=== PATIENT | male | born 1945 | race Caucasian/White ===

== ENCOUNTER 2017-10-05 07:45 | Emergency (ER) | payer MEDICARE, OTHER ==
[2017-10-05 07:57] VITALS: O2SAT 98
--- NOTE | 2017-10-05 08:12 | ERPHSYRPT ---
- History of Present Illness Time Seen by Provider: 10/05/17 08:01 Source: patient Exam Limitations: no limitations Patient Subjective Stated Complaint: pt here for right sided head pain started a few weeks ago and now has jaw pain as well, sharp shooting pain that comes and goes, no injury. Triage Nursing Assessment: pt alert, waked in , resp easy, skin w/d/p. no injury noted to right side of face Physician History: 71-year-old white male arrives with complaint of right sided head pain for 2 weeks described as sharp he states beginning last night he began to have pain around the right angle of the jaw again described as sharp. No history of chest pain no shortness of breath no nausea no vomiting. Describes the pain is intermittent. Past medical history includes high blood pressure. Past surgical history includes orthopedic surgery (right knee scope Social history patient denies tobacco alcohol or illicit drug use Patient states he was seen by his family doctor for his head pain but no real reason for the pain Timing/Duration: other (right-sided head pain for 2 weeks right jaw pain since yesterday) Severity: moderate Modifying Factors: Improves With: nothing Associated Symptoms: headaches (right sided head pain sharp), No nausea, No vomiting, No abdominal pain, No shortness of breath, No heartburn, No diaphoresis, No cough, No chills, No chest pain, No fever, No loss of appetite, No malaise, No rash, No syncope, No seizure, No weakness Allergies/Adverse Reactions: No Known Drug Allergies Allergy (Verified 10/05/17 07:57) Home Medications: Aspirin 81 gm Chew [Baby Aspirin 81 mg Chew] 81 mg PO DAILY 11/01/13 [ History] Lisinopril 40 mg PO DAILY 11/02/13 [History] hydroCHLOROthiazide [Hydrochlorothiazide] 12.5 mg DAILY 10/05/17 [History] Hx Influenza Vaccination/Date Given: Yes Hx Pneumococcal Vaccination/Date Given: Yes Immunizations Up to Date: Yes - Review of Systems Constitutional: No Fever, No Chills Eyes: No Symptoms Ears, Nose, & Throat: Mouth Pain, Other (right jaw painright jaw pain), No Ear Pain, No Ear Discharge, No Hearing Changes, No Tinnitus, No Nose Pain, No Nose Congestion, No Nose Discharge, No Sinus Drainage, No Epistaxis, No Mouth Swelling, No Loose Teeth, No Throat Pain, No Throat Swelling, No Snoring, No Stridor Respiratory: No Cough, No Dyspnea Cardiac: No Chest Pain, No Edema, No Syncope Abdominal/Gastrointestinal: No Abdominal Pain, No Nausea, No Vomiting, No Diarrhea Genitourinary Symptoms: No Dysuria Musculoskeletal: No Back Pain, No Neck Pain Skin: No Rash Neurological: Other (right sided head pain), No Dizziness, No Focal Weakness, No Gait Changes, No Irritability, No Lethargy, No Paralysis, No Parasthesia, No Seizure, No Sensory Changes, No Speech Changes, No Tics, No Tremors, No Vertigo Psychological: No Symptoms Endocrine: No Symptoms All Other Systems: Reviewed and Negative - Past Medical History Pertinent Past Medical History: No Neurological History: No Pertinent History ENT History: Cataracts Cardiac History: Hypertension Respiratory History: No Pertinent History Endocrine Medical History: No Pertinent History Musculoskeletal History: No Pertinent History GI Medical History: No Pertinent History History: No Pertinent History Psycho-Social History: No Pertinent History Male Reproductive Disorders: No Pertinent History - Past Surgical History Past Surgical History: Yes Neuro Surgical History: No Pertinent History Cardiac: No Pertinent History Respiratory: No Pertinent History Gastrointestinal: No Pertinent History Genitourinary: No Pertinent History Musculoskeletal: Orthopedic Surgery Male Surgical History: No Pertinent History Other Surgical History: right knee scope - Social History Smoking Status: Never smoker Exposure to second hand smoke: Yes Drug Use: none Patient Lives Alone: No - Nursing Vital Signs Nursing Vital Signs: Initial Vital Signs Temperature 97.8 F 10/05/17 07:49 Pulse Rate 58 L 10/05/17 07:49 Respiratory Rate 16 10/05/17 07:49 Blood Pressure 154/88 10/05/17 07:49 O2 Sat by Pulse Oximetry 98 10/05/17 07:49 Pain Scale Pain Intensity 6 - Physical Exam General Appearance: no apparent distress, alert Eye Exam: PERRL/EOMI, eyes nml inspection Ears, Nose, Throat Exam: normal ENT inspection, TMs normal, pharynx normal, moist mucous membranes Neck Exam: normal inspection, non-tender, supple, full range of motion Respiratory Exam: normal breath sounds, lungs clear, No respiratory distress Cardiovascular Exam: regular rate/rhythm, normal heart sounds, normal peripheral pulses Gastrointestinal/Abdomen Exam: soft, normal bowel sounds, No tenderness, No mass Back Exam: normal inspection, normal range of motion, No CVA tenderness, No vertebral tenderness Extremity Exam: normal inspection, normal range of motion, pelvis stable Neurologic Exam: alert, oriented x 3, cooperative, cryptological technician II-XII nml as tested, normal mood/affect, nml cerebellar function, nml station & gait, sensation nml, No motor deficits Skin Exam: normal color, warm, dry, No rash Lymphatic Exam: No adenopathy SpO2 Interpretation: normal (98%) SpO2: 98 Oxygen Delivery: Room Air - Course Nursing assessment & vital signs reviewed: Yes EKG Interpreted by Me: RATE (56 bpm), Sinus [place], NORMAL AXIS, Other (EKG: Sinus bradycardia 56 bpm, normal axis, no acute ST or T wave changes noted) - CT Exams Head CT Interpretation: Tele-radiologist Report (Head CT: Chronic changes, no acute intracranial abnormality) Ordered Tests: Active Orders 24 hr Category Date Time Status Lumber Inspector STAT Care 10/05/17 08:06 Active EKG-ER Only STAT Care 10/05/17 08:05 Active IV Insertion STAT Care 10/05/17 08:05 Active HEAD WITHOUT CONTRAST [CT] Stat Exams 10/05/17 08:07 Taken CBC W DIFF Stat Lab 10/05/17 08:18 Completed CMP Stat Lab 10/05/17 08:18 Completed SED RATE [Erythrocyte Sedimentation Rate] Stat Lab 10/05/17 08:18 Completed TROPONIN Q3H Lab 10/05/17 08:18 Completed Medication Summary Discontinued Medications Generic Name Dose Route Start Last Admin Trade Name Freq PRN Reason Stop Dose Admin Aspirin 324 mg 10/05/17 09:35 10/05/17 09:37 Baby Aspirin 81 Mg Chew PO 10/05/17 09:36 Not Given STAT ONE Aspirin 243 mg 10/05/17 09:39 10/05/17 09:41 Baby Aspirin 81 Mg Chew PO 10/05/17 09:40 243 mg STAT ONE Administration Lab/Rad Data: Laboratory Result Diagrams 10/05/17 08:18 10/05/17 08:18 Laboratory Results 10/05/17 10/05/17 10/05/17 Range/Units 08:18 08:18 08:18 WBC (4.0-10.5) K/mm3 RBC (4.1-5.6) M/mm3 Hgb (12.5-18.0) gm/dl Hct (42-50) % MCV (78-100) fl MCH (26-32) pg MCHC (32-36) g/dl RDW (11.5-14.0) % Plt Count (150-450) K/mm3 MPV (6-9.5) fl Gran % (36.0-66.0) % Eos # (Auto) (0-0.5) Absolute Lymphs (auto) (1.0-4.6) Absolute Monos (auto) (0.0-1.3) Lymphocytes % (24.0-44.0) % Monocytes % (0.0-12.0) % Eosinophils % (0.00-5.0) % Basophils % (0.0-0.4) % Absolute Granulocytes (1.4-6.9) Basophils # (0-0.4) ESR 6 (0-15) mm/hr Sodium 141 (137-145) mmol/L Potassium 4.3 (3.5-5.1) mmol/L Chloride 107 (98-107) mmol/L Carbon Dioxide 26 (22-30) mmol/L Anion Gap 12.2 (5-15) MEQ/L BUN 21 H (9-20) mg/dL Creatinine 1.03 (0.66-1.25) mg/dL Estimated GFR > 60.0 ML/MIN Glucose 110 H (74-106) mg/dL Calcium 9.2 (8.4-10.2) mg/dL Total Bilirubin 0.80 (0.2-1.3) mg/dL AST 23 (17-59) U/L ALT 22 (0-50) U/L Alkaline Phosphatase 66 (38-126) U/L Troponin I < 0.012 (0.000-0.034) ng/mL Serum Total Protein 7.1 (6.3-8.2) g/dL Albumin 4.1 (3.5-5.0) g/dL 10/05/17 Range/Units 08:18 WBC 4.8 (4.0-10.5) K/mm3 RBC 4.78 (4.1-5.6) M/mm3 Hgb 15.0 (12.5-18.0) gm/dl Hct 43.4 (42-50) % MCV 90.8 (78-100) fl MCH 31.4 (26-32) pg MCHC 34.6 (32-36) g/dl RDW 12.7 (11.5-14.0) % Plt Count 140 L (150-450) K/mm3 MPV 12.4 H (6-9.5) fl Gran % 46.0 (36.0-66.0) % Eos # (Auto) 0.21 (0-0.5) Absolute Lymphs (auto) 1.73 (1.0-4.6) Absolute Monos (auto) 0.62 (0.0-1.3) Lymphocytes % 36.1 (24.0-44.0) % Monocytes % 12.9 H (0.0-12.0) % Eosinophils % 4.4 (0.00-5.0) % Basophils % 0.6 (0.0-0.4) % Absolute Granulocytes 2.20 (1.4-6.9) Basophils # 0.03 (0-0.4) ESR (0-15) mm/hr Sodium (137-145) mmol/L Potassium (3.5-5.1) mmol/L Chloride (98-107) mmol/L Carbon Dioxide (22-30) mmol/L Anion Gap (5-15) MEQ/L BUN (9-20) mg/dL Creatinine (0.66-1.25) mg/dL Estimated GFR ML/MIN Glucose (74-106) mg/dL Calcium (8.4-10.2) mg/dL Total Bilirubin (0.2-1.3) mg/dL AST (17-59) U/L ALT (0-50) U/L Alkaline Phosphatase (38-126) U/L Troponin I (0.000-0.034) ng/mL Serum Total Protein (6.3-8.2) g/dL Albumin (3.5-5.0) g/dL - Progress Progress: improved Progress Note: 10/05/17 09:36 71-year-old white male arrives with several weeks of a pain in the right lateral forehead states last night he was having pain in the right mandible describes as a sharp shooting pain intermittent. Sedimentation rate on this patient is normal cardiac workup CBC CMP EKG all essentially normal. Will give patient aspirin 243 milligrams orally he is taken 81 mg at home. Will send home with [place] for pain. Patient will need to follow back up with his family doctor. Possibly could be a neuralgia (trigeminal) if this continues - Departure Time of Disposition: 09:38 Departure Disposition: Home Clinical Impression: Right-sided face pain, Right sided head pain Sprain of jaw, right side, initial encounter Qualifiers: Encounter type: initial encounter Qualified Code(s): S03.41XA - Sprain of jaw, right side, initial encounter Condition: Fair Critical Care Time: No Referrals: ROZINA LUNA MD [Primary Care Provider] - Additional Instructions: Return home. [place] 5/325 one orally every 4-6 hours as needed for pain #10. Follow-up with your family doctor. Return for acute distress or for severe symptoms. Prescriptions: Hydrocodone/Acetaminophen [[place] 5-325 Tablet] 1 tab PO Q4-6HPRN PRN #10 tablet MDD 6 tablets PRN Reason: pain
[2017-10-05 08:38] LABS: BASOPHIL % 0.6 % (0.0-0.4); Basophil (Absolute #) 0.03 (0-0.4); Eosinophil % 4.4 % (0.00-5.0); Eosinophil (Absolute #) 0.21 (0-0.5); Hematocrit 43.4 % (42-50); Lymphocyte (Absolute #) 1.73 (1.0-4.6); Lymphocytes % 36.1 % (24.0-44.0); Mean Cell Volume 90.8 fl (78-100); Mean Corpuscular Hemoglobin 31.4 pg (26-32); Mean Corpuscular Hgb Concent. 34.6 g/dl (32-36); Mean Platelet Volume 12.4 fl (6-9.5); Monocyte (Absolute #) 0.62 (0.0-1.3); Monocytes % 12.9 % (0.0-12.0); Platelet Count 140 K/mm3 (150-450); Red Blood Count 4.78 M/mm3 (4.1-5.6); Red Cell Distribution Width 12.7 % (11.5-14.0); White Blood Count 4.8 K/mm3 (4.0-10.5)
[2017-10-05 08:39] LABS: ALBUMIN 4.1 g/dL (3.5-5.0); ALKALINE PHOSPHATASE 66 U/L (38-126); ANION GAP 12.2 MEQ/L (5-15); BLOOD UREA NITROGEN 21 mg/dL (9-20); CHLORIDE 107 mmol/L (98-107); Calcium 9.2 mg/dL (8.4-10.2); Carbon Dioxide 26 mmol/L (22-30); Creatinine 1 1.03 mg/dL (0.66-1.25); Glucose 110 mg/dL (74-106); Potassium 4.3 mmol/L (3.5-5.1); SGOT/AST 23 U/L (17-59); SGPT/ALT 22 U/L (0-50); SODIUM 141 mmol/L (137-145); Total Protein 7.1 g/dL (6.3-8.2)
[2017-10-05] MEDS ORDERED: BABY ASPIRIN 81 MG CHEW PO ONE ×2 (09:35→09:39)
[2017-10-05 09:48] VITALS: BP 137/80; PULSE 54
--- NOTE | 2017-10-05 19:15 | XRAY ---
Indication: Right head pain 2 weeks. Multiple contiguous axial images obtained through the head without contrast. Comparison: None Age-appropriate global atrophy and moderate periventricular degenerative micro-ischemia bilaterally. No acute intracranial hemorrhage, abnormal extra-axial fluid collection, or mass effect. Fourth ventricle is midline without hydrocephalus. Bony calvarium intact. Visualized paranasal sinuses and mastoid air cells are clear. Impression: Nonacute senile brain. Comment: Preliminary interpretation was made by [facility]. No discrepancy. CTDI 65.42
== END 2017-10-05 09:50 | disposition home or self-care (01) ==
LOC: ED 07:45
DX: R51 Headache (principal); S03.41XA Sprain of jaw, right side, initial encounter; Z79.82 Long term (current) use of aspirin; Z79.899 Other long term (current) drug therapy
CPT/HCPCS: 36415; 70450; 80053; 84484; 85025; 85652; 93005; 93041; 99284

== ENCOUNTER 2020-10-13 14:33 | Emergency (ER) | payer MEDICARE, OTHER ==
--- NOTE | 2020-10-13 14:50 | ERPHSYRPT ---
- History of Present Illness Time Seen by Provider: 10/13/20 14:50 Source: patient, family Exam Limitations: no limitations Physician History: This is a 74-year-old active white male who presents with a tender right first toe. There is associated redness but very minimal swelling. Patient has a history of hypertension. He takes 2 antihypertensive medication and a baby aspirin today. He is not diabetic. 2 to 3 days ago he does recall putting his feet without socks into old shoes in the garage to do some work. He did not see an insect or feel an insect bite him, but over the next 2 to 3 days he noticed increasing redness and pain. He has not had fevers or chills. He is not nauseated. He has no history of gout. He definitely has not had any injury or trauma to his right first toe per his report. Severity of Pain-Max: mild (Mild to moderate) Severity of Pain-Current: mild (Mild to moderate) Lower Extremities Pain: 1st toe: right Modifying Factors: Improves With: movement Associated Symptoms: none Allergies/Adverse Reactions: No Known Drug Allergies Allergy (Verified 10/13/20 14:45) Home Medications: Aspirin 81 gm Chew [Baby Aspirin 81 mg Chew] 81 mg PO DAILY 11/01/13 [History] Lisinopril 40 mg PO DAILY 11/02/13 [History] hydroCHLOROthiazide [Hydrochlorothiazide] 12.5 mg PO DAILY 10/05/17 [History] Hx Influenza Vaccination/Date Given: Yes Hx Pneumococcal Vaccination/Date Given: Yes Travel Risk - International Travel Have you traveled outside of the country in past 3 weeks: No - Coronavirus Screening Are you exhibiting any of the following symptoms?: No Close contact with a COVID-19 positive Pt in past 14-21 Days: No - Review of Systems Constitutional: No Symptoms Eyes: No Symptoms Ears, Nose, & Throat: No Symptoms Respiratory: No Symptoms Cardiac: No Symptoms Abdominal/Gastrointestinal: No Symptoms Genitourinary Symptoms: No Symptoms Musculoskeletal: Joint Redness (Right first toe), Joint Pain (Right first toe) Skin: Cellulitis (? Right first toe) Neurological: No Symptoms Psychological: No Symptoms Endocrine: No Symptoms Hematologic/Lymphatic: No Symptoms Immunological/Allergic: No Symptoms All Other Systems: Reviewed and Negative - Past Medical History Pertinent Past Medical History: No Neurological History: No Pertinent History ENT History: Cataracts Cardiac History: Hypertension Respiratory History: No Pertinent History Endocrine Medical History: No Pertinent History Musculoskeletal History: No Pertinent History GI Medical History: No Pertinent History History: No Pertinent History Psycho-Social History: No Pertinent History Male Reproductive Disorders: No Pertinent History - Past Surgical History Past Surgical History: Yes Neuro Surgical History: No Pertinent History Cardiac: No Pertinent History Respiratory: No Pertinent History Gastrointestinal: No Pertinent History Genitourinary: No Pertinent History Musculoskeletal: Orthopedic Surgery Male Surgical History: No Pertinent History Other Surgical History: right knee scope - Social History Smoking Status: Never smoker Exposure to second hand smoke: Yes Drug Use: none Patient Lives Alone: No - Nursing Vital Signs Nursing Vital Signs: Initial Vital Signs Temperature 98.3 F 10/13/20 14:47 Pulse Rate 71 10/13/20 14:47 Respiratory Rate 18 10/13/20 14:47 Blood Pressure 113/55 10/13/20 14:47 O2 Sat by Pulse Oximetry 96 10/13/20 14:47 Pain Scale Pain Intensity 10 - Physical Exam General Appearance: no apparent distress, alert Eyes, Ears, Nose, Throat Exam: normal ENT inspection, moist mucous membranes Neck Exam: normal inspection, non-tender, supple, full range of motion Cardiovascular/Respiratory Exam: chest non-tender, no respiratory distress Gastrointestinal/Abdominal Exam: non-tender Back Exam: normal inspection, normal range of motion, No CVA tenderness, No vertebral tenderness Hips Exam: bilateral: non-tender, normal inspection, normal range of motion, no evidence of injury Legs Exam: bilateral leg: non-tender, normal inspection, normal range of motion, no evidence of injury Knees Exam: bilateral knee: non-tender, normal inspection, normal range of motion, no evidence of injury Ankle Exam: bilateral ankle: non-tender, normal inspection, normal range of motion, no evidence of injury Foot Exam: right foot: bone tenderness (Right first toe), soft tissue tenderness (Right first toe with associated localized redness medial aspect) Neuro/Tendon Exam: normal sensation, normal motor functions, normal tendon functions, responds to pain Mental Status Exam: alert, oriented x 3, cooperative Skin Exam: other (Localized redness/? Cellulitis medial aspect right first toe) SpO2 Interpretation: normal O2 Delivery: Room Air - Course Nursing assessment & vital signs reviewed: Yes Ordered Tests: Medication Summary Discontinued Medications Generic Name Dose Route Start Last Admin Trade Name Freq PRN Reason Stop Dose Admin Hydrocodone Bitart/Acetaminophen 1 tab 10/13/20 15:26 [place] 5/325 Mg PO 10/13/20 15:27 STAT ONE Ceftriaxone Sodium 1,000 mg 10/13/20 15:25 Rocephin 1000 Mg Inj IM 10/13/20 15:26 STAT ONE Methylprednisolone Sodium Succinate 125 mg 10/13/20 15:25 Solu-Medrol 125 Mg IM 10/13/20 15:26 STAT ONE - Progress Progress: unchanged Progress Note: 10/13/20 15:34 Medical decision making: This patient more likely has gout of his right first toe than cellulitis. However, the patient's spouse desires to have him covered with antibiotics because I cannot completely rule out an infection. Therefore, we will treat him with Keflex, steroids and a couple days of [place] pain medication as an outpatient. I am using the steroids rather than NSAIDs in this patient because of his age and to avoid any renal side effects. Counseled pt/family regarding: diagnosis, need for follow-up - Departure Departure Disposition: Home Clinical Impression: Gout attack, Cellulitis Condition: Stable Critical Care Time: No Referrals: ROZINA ULNA MD [Primary Care Provider] - Additional Instructions: Take medication as prescribed. Follow-up with your primary care doctor for persistent symptoms. However, return to the emergency department if your symptoms worsen. Prescriptions: Hydrocodone/APAP 5/325 [[place] 5/325 mg] 1 each PO Q8H PRN PRN #6 tablet MDD 3 PRN Reason: Pain Prednisone 5 mg [Deltasone 5 mg] 5 mg PO TID #12 tablet Cephalexin Mh 500 mg [Keflex 500 mg] 500 mg PO TID #21 capsule
[2020-10-13 14:59] VITALS: O2SAT 96
[2020-10-13] MEDS ORDERED: solu-MEDROL 125 MG IM ONE (15:25)
[2020-10-13] MEDS ORDERED: Rocephin 1000 MG INJ IM ONE (15:25)
[2020-10-13] MEDS ORDERED: NORCO 5/325 MG PO ONE (15:26)
[2020-10-13] MEDS ORDERED: XYLOCAINE 1% HCL 20 ML MDV ONE (15:29)
[2020-10-13] MEDS ORDERED: NORCO 5/325 MG ONE (15:29)
[2020-10-13] MEDS ORDERED: Rocephin 1000 MG INJ ONE (15:29)
[2020-10-13] MEDS ORDERED: solu-MEDROL 125 MG ONE (15:29)
[2020-10-13 15:53] VITALS: BP 107/62; PULSE 70
== END 2020-10-13 15:58 | disposition home or self-care (01) ==
LOC: ED 14:33
DX: M10.9 Gout, unspecified (principal); L03.031 Cellulitis of right toe
CPT/HCPCS: 96372; 99284; J0696; J2930; A9270-GY

== ENCOUNTER 2021-01-13 22:06 | Emergency (ER) | payer MEDICARE ==
--- NOTE | 2021-01-14 01:40 | ERPHSYRPT ---
- History of Present Illness Time Seen by Provider: 01/14/21 01:35 Source: patient Exam Limitations: no limitations Patient Subjective Stated Complaint: to er c/o severe weakness and vomiting. pt also has cough and fever noted. 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 pt went to [facility] yesterday and was covid tested though continued to feel weaker so came to er Triage Nursing Assessment: to er p/w/d resp easy non labored a @ox3 denies any sob. fiorella bbs cta pt is a negative assess other than mild weakness Physician History: pt is COvid + from a few days ago and felt weak, and with cough but not short of breath and no CP or ABd pain just achy all over. had emesis , but thinks this was gagging from a coughing spell. He has been fine with good O2 sat on observation room air here for a few hours and feels OK to go home now and declines further workup in ER at this time and has been advised there can be complications to watch for but prefers DC with out pt f/u rather than furhter w/u in ER at this time or obs in hosp. and has the capacity to make this choice. Timing/Duration: day(s) Cough Quality/Degree: dry cough Possible Cause: no prior episodes Associated Symptoms: fever, cough, No chest pain/soreness, No shortness of breath Allergies/Adverse Reactions: No Known Drug Allergies Allergy (Verified 01/13/21 23:26) Home Medications: Aspirin 81 gm Chew [Baby Aspirin 81 mg Chew] 81 mg PO DAILY 11/01/13 [History] Lisinopril 40 mg PO DAILY 11/02/13 [History] hydroCHLOROthiazide [Hydrochlorothiazide] 12.5 mg PO DAILY 10/05/17 [History] Allopurinol 300 mg [Zyloprim 300 mg] 300 mg PO DAILY 01/13/21 [History] Hx Influenza Vaccination/Date Given: Yes Hx Pneumococcal Vaccination/Date Given: Yes Travel Risk - International Travel Have you traveled outside of the country in past 3 weeks: No - Coronavirus Screening Are you exhibiting any of the following symptoms?: Yes Symptoms: Fever, Cough: New Onset, Vomiting/Diarrhea, Headaches/Body Aches/Fatigue Close contact with a COVID-19 positive Pt in past 14-21 Days: No - Vaccine Status Have you recieved a Covid-19 vaccination: Yes Student Teacher: Moderna - Vaccination Dates Date of 2cond Vaccination (if applicable): 07/05/2020 - Review of Systems Constitutional: Fever, No Chills Eyes: No Symptoms Ears, Nose, & Throat: No Symptoms Respiratory: Cough, No Dyspnea Cardiac: No Chest Pain, No Edema, No Syncope Abdominal/Gastrointestinal: No Abdominal Pain, No Nausea, No Vomiting, No Diarrhea Genitourinary Symptoms: No Dysuria Musculoskeletal: No Back Pain, No Neck Pain Skin: No Rash Neurological: No Dizziness, No Focal Weakness, No Sensory Changes Psychological: No Symptoms Endocrine: No Symptoms Hematologic/Lymphatic: No Symptoms Immunological/Allergic: No Symptoms All Other Systems: Reviewed and Negative - Past Medical History Pertinent Past Medical History: No Neurological History: No Pertinent History ENT History: Cataracts Cardiac History: Hypertension Respiratory History: No Pertinent History Endocrine Medical History: No Pertinent History Musculoskeletal History: No Pertinent History GI Medical History: No Pertinent History History: No Pertinent History Psycho-Social History: No Pertinent History Male Reproductive Disorders: No Pertinent History Other Medical History: gout - Past Surgical History Past Surgical History: Yes Neuro Surgical History: No Pertinent History Cardiac: No Pertinent History Respiratory: No Pertinent History Gastrointestinal: No Pertinent History Genitourinary: No Pertinent History Musculoskeletal: Orthopedic Surgery Male Surgical History: No Pertinent History Other Surgical History: right knee scope - Social History Smoking Status: Never smoker Exposure to second hand smoke: Yes Drug Use: none Patient Lives Alone: No - Nursing Vital Signs Nursing Vital Signs: Initial Vital Signs Temperature 100.5 F 01/13/21 23:20 Pulse Rate 82 01/13/21 23:20 Respiratory Rate 18 01/13/21 23:20 Blood Pressure 132/84 01/13/21 23:20 O2 Sat by Pulse Oximetry 94 L 01/13/21 23:20 - Physical Exam General Appearance: no apparent distress, alert Eye Exam: PERRL/EOMI, eyes nml inspection Ears, Nose, Throat Exam: normal ENT inspection, TMs normal, pharynx normal, moist mucous membranes Neck Exam: normal inspection, non-tender, supple, full range of motion Respiratory Exam: normal breath sounds, lungs clear, No respiratory distress Cardiovascular Exam: regular rate/rhythm, normal heart sounds Gastrointestinal/Abdomen Exam: soft, No tenderness Rectal Exam: deferred Back Exam: normal inspection, No CVA tenderness, No vertebral tenderness Extremity Exam: normal inspection, normal range of motion Neurologic Exam: alert, oriented x 3, cooperative, normal mood/affect, sensation nml, No motor deficits Skin Exam: normal color, warm, dry, No rash Lymphatic Exam: No adenopathy SpO2 Interpretation: normal SpO2: 96 O2 Delivery: Room Air (recheck of electrode got 96%) - Course Nursing assessment & vital signs reviewed: Yes - Progress Progress: improved, re-examined Air Movement: good Blood Culture(s) Obtained: No Antibiotics given: No Counseled pt/family regarding: diagnosis, need for follow-up - Departure Departure Disposition: Home Clinical Impression: COVID-19 Condition: Good Critical Care Time: No Referrals: ROZINA LUNA MD [Primary Care Provider] - Instructions: Coronavirus Disease 2019 (COVID-19) (DC) Additional Instructions: followup with your Dr. continue to focus on plenty of fluids. Return meantime if short of breath or any symptoms of concern.
[2021-01-14 01:43] VITALS: O2SAT 96
[2021-01-14 01:46] VITALS: BP 113/68; PULSE 74
== END 2021-01-14 01:50 | disposition home or self-care (01) ==
LOC: ED 22:06
DX: U07.1 COVID-19 (principal)
CPT/HCPCS: 36000; 96365; 96413; 99211; 99284; Q0243

== ENCOUNTER 2022-11-13 15:17 | Emergency (ER) | payer MEDICARE ==
--- NOTE | 2022-11-13 17:04 | XRAY ---
Indication: Abdomen pain. Multiple contiguous axial images obtained through the abdomen and pelvis without contrast. Comparison: None Lung bases emesis pulmonary emphysema with mild bibasilar subsegmental atelectasis/scarring. Heart not enlarged. Small hiatal hernia. Noncontrasted stomach and bowel loops appear nonobstructed. Normal appendix. Mild diffuse scattered colonic fecal debris throughout. Moderately distended urinary bladder concerning for obstructive uropathy versus neurogenic bladder. Enlarged prostate gland does impress on the base of the bladder. No free fluid/air. Remaining liver, gallbladder, pancreas, spleen, adrenal glands, kidneys, ureters, and bladder are unremarkable for noncontrast exam. Mild scattered aortoiliac calcifications without AAA. Osseous structures intact with osteopenia and moderate degenerative changes throughout the spine/both hips. Small fatty bilateral inguinal hernias. Impression: 1. Mild diffuse fecal stasis. 2. Distended urinary bladder. Rule out outlet obstruction versus neurogenic bladder. 3. Chronic findings including pulmonary emphysema, hiatal hernia, enlarged prostate gland, arteriosclerotic disease, chronic bony findings, and bilateral fatty inguinal hernias
[2022-11-13 17:40] VITALS: BP 110/73; PULSE 51
[2022-11-13 17:45] VITALS: O2SAT 98
--- NOTE | 2022-11-13 17:45 | ERPHSYRPT ---
- History of Present Illness Time Seen by Provider: 11/13/22 17:39 Source: patient Exam Limitations: no limitations Patient Subjective Stated Complaint: constipation Triage Nursing Assessment: Patient reports that he has not had a bowel movement in 2 days and is complaining of pain at rectum rating pain 10/10 at this time. Patient denies abdominal pain, nausea and vomiting. Physician History: Patient is a 76-year-old male presents to our ED for evaluation of rectal pain. Rectal pain occurred this morning. Patient states he has not had a bowel movement in 2 days. Pain is constant. No trauma. No fever. No nausea vomiting or diaphoresis. Symptoms are moderate in intensity. No specific worsening improving factors. Patient voices no other complaints or concerns at this time. Portions of this note were created with voice recognition technology. There may be grammatical, spelling, punctuation or sound alike errors Timing/Duration: today Severity: moderate Modifying Factors: Improves With: nothing Associated Symptoms: denies symptoms Allergies/Adverse Reactions: No Known Drug Allergies Allergy (Verified 11/13/22 16:09) Home Medications: Aspirin 81 gm Chew [Baby Aspirin 81 mg Chew] 81 mg PO DAILY 11/01/13 [History] lisinopriL [Lisinopril] 40 mg PO DAILY 11/02/13 [History] hydroCHLOROthiazide [Hydrochlorothiazide] 12.5 mg PO DAILY 10/05/17 [History] Allopurinol 300 mg [Zyloprim 300 mg] 300 mg PO DAILY 01/13/21 [History] Hx Tetanus, Diphtheria Vaccination/Date Given: No Hx Influenza Vaccination/Date Given: Yes Hx Pneumococcal Vaccination/Date Given: Yes Immunizations Up to Date: Yes Travel Risk - International Travel Have you traveled outside of the country in past 3 weeks: No - Coronavirus Screening Are you exhibiting any of the following symptoms?: No - Vaccine Status Have you recieved a Covid-19 vaccination: Yes Software Sales Manager: Unknown - Vaccination Dates Dates if Unknown: unknown - Review of Systems Respiratory: No Cough, No Dyspnea Cardiac: No Chest Pain, No Edema, No Syncope All Other Systems: Unable due to condition (Patient distress due to rectal pain.) - Past Medical History Pertinent Past Medical History: No Neurological History: No Pertinent History ENT History: Cataracts Cardiac History: Hypertension Respiratory History: No Pertinent History Endocrine Medical History: No Pertinent History Musculoskeletal History: No Pertinent History GI Medical History: No Pertinent History History: No Pertinent History Psycho-Social History: No Pertinent History Male Reproductive Disorders: No Pertinent History Other Medical History: gout - Past Surgical History Past Surgical History: Yes Neuro Surgical History: No Pertinent History Cardiac: No Pertinent History Respiratory: No Pertinent History Gastrointestinal: No Pertinent History Genitourinary: No Pertinent History Musculoskeletal: Orthopedic Surgery Male Surgical History: No Pertinent History Other Surgical History: right knee scope - Social History Smoking Status: Never smoker Exposure to second hand smoke: No Drug Use: none Patient Lives Alone: No - Nursing Vital Signs Nursing Vital Signs: Initial Vital Signs Temperature 97.8 F 11/13/22 16:00 Pulse Rate 70 11/13/22 16:00 Respiratory Rate 18 11/13/22 16:00 Blood Pressure 109/61 11/13/22 16:00 O2 Sat by Pulse Oximetry 98 11/13/22 16:00 Pain Scale Pain Intensity 0 - Physical Exam General Appearance: moderate distress, alert Eye Exam: PERRL/EOMI, eyes nml inspection Respiratory Exam: airway intact, No respiratory distress Cardiovascular Exam: regular rate/rhythm Gastrointestinal/Abdomen Exam: soft, normal bowel sounds, other (Per RN report), No tenderness, No mass Back Exam: normal inspection, normal range of motion, No CVA tenderness, No vertebral tenderness Extremity Exam: normal inspection (Patient observed to be ambulatory normal gait), normal range of motion, pelvis stable Neurologic Exam: alert, oriented x 3, cooperative, normal mood/affect, nml cerebellar function, nml station & gait, sensation nml, No motor deficits Skin Exam: normal color, warm, dry, No rash Lymphatic Exam: No adenopathy SpO2 Interpretation: normal SpO2: 98 O2 Delivery: Room Air - Course Nursing assessment & vital signs reviewed: Yes - CT Exams Abdomen/Pelvis CT Interpretation: Tele-radiologist Report (CT scan reveals pulmonary for Zima, small hiatal hernia, fecal debris, distended bladder, enlarged prostate, osteopenia, spine arthritis. Bilateral inguinal hernias) Ordered Tests: Active Orders 24 hr Category Date Time Status ABDOMEN AND PELVIS W/0 CONTRAS [CT] Stat Exams 11/13/22 16:19 Completed - Progress Progress: improved Progress Note: Patient is a 76-year-old male presents to our ED for constipation x2 days. Patient was experiencing severe rectal pain. Patient had a bowel movement in our ED prior to CAT scan. Patient experienced complete pain relief after his bowel movement. Patient now requesting discharge. CT scan ordered. CT scan reveals distended urinary bladder and enlarged prostate. We advised a urinary catheter to assess for urinary retention. Patient is pain-free he declined the catheter and states he just wants to be discharged. Patient left our ED before ER physician can make his final evaluation/reassessment. \ Portions of this note were created with voice recognition technology. There may be grammatical, spelling, punctuation or sound alike errors Complexity of problem addressed is moderate acute complicated No critical care time Complexity of data reviewed and analyzed is moderate. Test reviewed clinical correlation made between test findings and H&P. Patient pain relieved after a bowel movement in our ED prior to CT scan. Patient asymptomatic at this time. Pain likely emanating from the need to pass stool. Risk of complication and or risk morbidity/mortality of patient management is low. Patient received a CT abdomen pelvis. Patient also passed a bowel movement in our ED. No indication for further work-up. We will discharge home. Patient refused catheterization. Vital stable. No social determinants of health present to impede follow-up. at bedside. They voiced no other complaints or concerns at this time. Portions of this note were created with voice recognition technology. There may be grammatical, spelling, punctuation or sound alike errors 11/13/22 17:40 Counseled pt/family regarding: diagnosis, need for follow-up, rad results - Departure Departure Disposition: Home Clinical Impression: Rectal pain, Small hiatal hernia, Fecal debris, Distended urinary bladder, Enlarged prostate, Osteopenia, Degenerative joint disease of spine, Bilateral inguinal hernia Condition: Stable Critical Care Time: No Referrals: ROZINA LUNA MD [Primary Care Provider] - Follow up/PCP as directed Additional Instructions: Discharge/Care Plan VIKIAGNES DOWD was seen on 11/13/22 in the Emergency Room. The patient was counseled regarding Diagnosis,Lab results, Imaging studies, need for follow up and when to return to the Emergency Room. Prescriptions given: Discharge Note I have spoken with the patient and/or caregivers. I have explained the patient's condition, diagnosis and treatment plan based on the information available to me at this time. I have answered the patient's and/or caregiver's questions and addressed any concerns. The patient and/or caregivers have as good understanding of the patient's diagnosis, condition and treatment plan as can be expected at this point. The vital signs have been stable. The patient's condition is stable and appropriate for discharge from the emergency department. The patient will pursue further outpatient evaluation with the primary care physician or other designated or consulting physician as outlined in the discharge instructions. The patient and/or caregivers are agreeable to this plan of care and follow-up instructions have been explained in detail. The patient and/or caregivers have received these instruction. The patient/and or caregivers are aware that any significant change in condition or worsening of symptoms should prompt an immediate return to this or the closest emergency department or call 911.
== END 2022-11-13 17:44 | disposition home or self-care (01) ==
LOC: ED 15:17
DX: K62.89 Other specified diseases of anus and rectum (principal); K44.9 Diaphragmatic hernia without obstruction or gangrene; N32.89 Other specified disorders of bladder; N40.0 Benign prostatic hyperplasia without lower urinary tract symptoms; M85.80 Other specified disorders of bone density and structure, unspecified site; M47.9 Spondylosis, unspecified; K40.20 Bilateral inguinal hernia, without obstruction or gangrene, not specified as recurrent; I10 Essential (primary) hypertension; Z79.899 Other long term (current) drug therapy
CPT/HCPCS: 74176; 99283

== ENCOUNTER 2024-01-21 11:59 | Emergency (ER) | payer MEDICARE ==
[2024-01-21 12:30] VITALS: TEMP 98.1
[2024-01-21 13:03] LABS: Absolute Neutrophil Ct (ANC) 2.57 x10^3/uL (1.78-5.38); BASOPHIL % 0.8 % (0.2-1.2); Basophil (Absolute #) 0.04 x10^3/uL (0.01-0.08); Eosinophil % 5.4 % (0.8-7.0); Eosinophil (Absolute #) 0.29 x10^3/uL (0.04-0.54); Hematocrit 45.5 % (40.1-51.0); Hemoglobin 15.4 g/dL (13.7-17.5); IMMATURE GRAN # 0.01 x10^3u/L (0.001-0.031); IMMATURE GRAN % 0.2 % (0.001-0.429); Lymphocyte (Absolute #) 1.82 x10^3/uL (1.32-3.57); Lymphocytes % 34.1 % (21.8-53.1); Mean Corpuscular Hemoglobin 32.5 pg (25.7-32.2); Mean Corpuscular Hgb Concent. 33.8 g/dL (32.3-36.5); Mean Platelet Volume 13.3 fL (9.4-12.4); Monocytes % 11.3 % (5.3-12.2); Neutrophil % 48.2 % (34.0-67.9); Platelet Count 98 x10^3/uL (163-337); Red Blood Count 4.74 x10^6/uL (4.63-6.08); Red Cell Distribution Width 13.2 % (11.6-14.4); White Blood Count 5.3 x10^3/uL (4.23-9.07)
[2024-01-21 13:23] LABS: ALBUMIN 4.4 g/dL (3.5-5.0); ANION GAP 13.9 MEQ/L (5-15); BILIRUBIN,TOTAL 1.3 mg/dL (0.2-1.3); Calcium 9.5 mg/dL (8.4-10.2); Creatinine 1 1.13 mg/dL (0.66-1.25); EST GLOMERULAR FILTRATION RATE 65.7 ML/MIN; MAGNESIUM 2.3 mg/dL (1.6-2.3); Potassium 4.2 mmol/L (3.5-5.1); Total Protein 7.7 g/dL (6.3-8.2)
--- NOTE | 2024-01-21 13:29 | XRAY ---
Indication: PVCs. Comparison: None Portable chest inflated and clear. Heart borderline enlarged. Bony thorax intact with osteopenia and mild degenerative changes. Impression: Nonacute chest.
[2024-01-21 13:37] LABS: Slide Review 1 YES
--- NOTE | 2024-01-21 13:59 | ERPHSYRPT ---
- History of Present Illness Time Seen by Provider: 01/21/24 12:05 Source: patient Exam Limitations: no limitations Patient Subjective Stated Complaint: Well check Triage Nursing Assessment: Patient brought back to ED per w/c and transferred self to bed. Patient A+O X3. Patient's skin pink, warm and dry. Patient states he went to donate blood yesterday and they wouldn't let him donate due to his pulse was in the 30s. Patient states he felt fine yesterday. Patient went to today to be checked out and was sent to ER for abnormal EKG. Patient denies pain or discomfort. Physician History: 78 years old male with history of hypertension is sent in ER from [facility] as patient had bradycardia yesterday when he tried to donate blood. Patient heart rate was in 30s although patient was asymptomatic. He denies any chest pain palpitations or shortness of breath today or before. Patient reports he is physically very active working out 5 days a week. Denies any lower extremity swelling, no fever chills or shortness of breath reported. Patient went to urgent care and is sent in here for further evaluation. EKG is sinus rhythm with heart rate in 70s, patient is totally asymptomatic. Allergies/Adverse Reactions: No Known Drug Allergies Allergy (Verified 01/21/24 12:22) Home Medications: Aspirin 81 gm Chew [Baby Aspirin 81 mg Chew] 81 mg PO DAILY 11/01/13 [History] lisinopriL [Lisinopril] 40 mg PO DAILY 11/02/13 [History] hydroCHLOROthiazide [Hydrochlorothiazide] 12.5 mg PO DAILY 10/05/17 [History] Allopurinol 300 mg [Zyloprim 300 mg] 300 mg PO DAILY 01/13/21 [History] Hx Tetanus, Diphtheria Vaccination/Date Given: No Hx Influenza Vaccination/Date Given: No Hx Pneumococcal Vaccination/Date Given: Yes Immunizations Up to Date: Yes Travel Risk - International Travel Have you traveled outside of the country in past 3 weeks: No - Emerging Infectious Disease Are you exhibiting symptoms associated with any current EIDs: No - Review of Systems Constitutional: No Symptoms Eyes: No Symptoms Ears, Nose, & Throat: No Symptoms Respiratory: No Symptoms Cardiac: No Symptoms Abdominal/Gastrointestinal: No Symptoms Genitourinary Symptoms: Incontinence Musculoskeletal: No Symptoms Skin: No Symptoms Neurological: No Symptoms Endocrine: No Symptoms Hematologic/Lymphatic: No Symptoms - Past Medical History Pertinent Past Medical History: No Neurological History: No Pertinent History ENT History: Cataracts Cardiac History: Hypertension Respiratory History: No Pertinent History Endocrine Medical History: No Pertinent History Musculoskeletal History: No Pertinent History GI Medical History: No Pertinent History History: No Pertinent History Psycho-Social History: No Pertinent History Male Reproductive Disorders: No Pertinent History Other Medical History: gout - Past Surgical History Past Surgical History: Yes Neuro Surgical History: No Pertinent History Cardiac: No Pertinent History Respiratory: No Pertinent History Gastrointestinal: No Pertinent History Genitourinary: No Pertinent History Musculoskeletal: Orthopedic Surgery Male Surgical History: No Pertinent History Other Surgical History: right knee scope - Social History Smoking Status: Never smoker Exposure to second hand smoke: No Drug Use: none Patient Lives Alone: No - Social Determinants of Health Will the patient participate in the screening: Yes Do you worry about a steady place to live?: No Do you have any problems with any of the following?: No known problems In the past 12 months,have you had to go without utilities?: No Transportation Issues: No Has anyone in your support network made you feel unsafe?: No Have you or anyone in your house had to go without enough: No - Nursing Vital Signs Nursing Vital Signs: Initial Vital Signs Pulse Rate 85 01/21/24 12:21 Respiratory Rate 24 01/21/24 12:21 Blood Pressure 108/81 01/21/24 12:21 O2 Sat by Pulse Oximetry 91 L 01/21/24 12:21 Pain Scale Pain Intensity 0 - Physical Exam General Appearance: no apparent distress, alert Eye Exam: PERRL/EOMI Ears, Nose, Throat Exam: normal ENT inspection Neck Exam: normal inspection, non-tender, supple, full range of motion Respiratory Exam: normal breath sounds, lungs clear Cardiovascular Exam: regular rate/rhythm, normal heart sounds Gastrointestinal/Abdomen Exam: soft, normal bowel sounds, No tenderness Back Exam: normal inspection Extremity Exam: normal inspection, normal range of motion Neurologic Exam: alert, oriented x 3, cooperative Skin Exam: normal color SpO2 Interpretation: normal SpO2: 93 O2 Delivery: Room Air - Course EKG Interpreted by Me: RATE (63), Sinus Rhythm, NORMAL AXIS, NORMAL INTERVALS, NORMAL QRS Ordered Tests: Active Orders 24 hr Category Date Time Status Mercury Washer STAT Care 01/21/24 12:44 Completed EKG-ER Only STAT Care 01/21/24 12:43 Completed CHEST 1 VIEW (PORTABLE) Stat Exams 01/21/24 12:43 Completed CBC W DIFF Stat Lab 01/21/24 12:55 Completed CMP Stat Lab 01/21/24 12:55 Completed MAGNESIUM Stat Lab 01/21/24 12:55 Completed TROPONIN Q4H Lab 01/21/24 12:55 Completed Bardy 3-7 Day Holter ONCE RT 01/21/24 15:09 Completed Lab/Rad Data: Laboratory Result Diagrams 01/21/24 12:55 01/21/24 12:55 Laboratory Results 01/21/24 01/21/24 01/21/24 Range/Units 12:55 12:55 12:55 WBC 5.3 (4.23-9.07) x10^3/uL RBC 4.74 (4.63-6.08) x10^6/uL Hgb 15.4 (13.7-17.5) g/dL Hct 45.5 (40.1-51.0) % MCV 96.0 H (79.0-92.2) fL MCH 32.5 H (25.7-32.2) pg MCHC 33.8 (32.3-36.5) g/dL RDW 13.2 (11.6-14.4) % Plt Count 98 L (163-337) x10^3/uL MPV 13.3 H (9.4-12.4) fL Gran % 48.2 (34.0-67.9) % Immature Gran % (Auto) 0.2 (0.001-0.429) % Nucleat RBC Rel Count 0.0 (0.00-0.2) % Eos # (Auto) 0.29 (0.04-0.54) x10^3/uL Immature Gran # (Auto) 0.01 (0.001-0.031) x10^3u/L Absolute Lymphs (auto) 1.82 (1.32-3.57) x10^3/uL Absolute Monos (auto) 0.60 (0.30-0.82) x10^3/uL Absolute Nucleated RBC 0.00 (0.00-0.012) x10^3u/L Lymphocytes % 34.1 (21.8-53.1) % Monocytes % 11.3 (5.3-12.2) % Eosinophils % 5.4 (0.8-7.0) % Basophils % 0.8 (0.2-1.2) % Absolute Granulocytes 2.57 (1.78-5.38) x10^3/uL Basophils # 0.04 (0.01-0.08) x10^3/uL Sodium 138 (135-145) mmol/L Potassium 4.2 (3.5-5.1) mmol/L Chloride 104 (98-107) mmol/L Carbon Dioxide 24 (22-30) mmol/L Anion Gap 13.9 (5-15) MEQ/L BUN 34 H (9-20) mg/dL Creatinine 1.13 (0.66-1.25) mg/dL Estimated GFR 65.7 ML/MIN Glucose 105 (74-106) mg/dL Calcium 9.5 (8.4-10.2) mg/dL Magnesium 2.3 (1.6-2.3) mg/dL Total Bilirubin 1.30 (0.2-1.3) mg/dL AST 48 (17-59) U/L ALT 34 (0-50) U/L Alkaline Phosphatase 84 (38-126) U/L Troponin I < 0.012 (0.000-0.033) ng/mL Serum Total Protein 7.7 (6.3-8.2) g/dL Albumin 4.4 (3.5-5.0) g/dL Slides for Path Review YES - Progress Progress: improved Progress Note: 01/21/24 13:56 78 years old is evaluated in the ER for low heart rate yesterday noticed while he was going to donate blood. Patient denies having chest pain palpitations or shortness of breath yesterday. He was completely asymptomatic. Patient does not have any symptoms today. EKG is sinus rhythm with no ischemic changes. Chest x-ray is negative for any acute cardiopulmonary findings. Normal white count, fairly unremarkable chemistries. Negative troponins. Patient has few PVCs on the monitor. Although patient denies having any skipping beats sensation. Patient does not have any cardiac workup done in the past and with his age and bradycardia yesterday, I would place him on Holter monitoring and recommended outpatient follow-up with primary care and cardiology. Discussed signs symptoms of worsening needing return to ER which he seems understanding. Stable for discharge. Counseled pt/family regarding: lab results, diagnosis, need for follow-up, rad results Medical Desision Making - Independent Historian Additional History obtained from: Spouse - Diagnostic Testing Diagnostic test were ordered, analyzed, and reviewed by me: Yes Radiological Interpretation: Reviewed by me - Departure Departure Disposition: Home Clinical Impression: Asymptomatic PVCs, Well adult health check Condition: Stable Critical Care Time: No Referrals: ROZINA LUNA MD [Primary Care Provider] - Follow up with PCP 1 day JOHNY SCHOFIELD [CONSULTING PHYSICIAN] - Follow up other (Call for appointment for reevaluation) Instructions: Ventricular premature beats Additional Instructions: Follow-up with primary care and cardiology for reevaluation. Return to ER if having palpitations, chest pain or difficulty breathing etc.
[2024-01-21 14:14] VITALS: BP 139/81; PULSE 65; RESP 23
[2024-01-21 21:15] VITALS: O2SAT 93
== END 2024-01-21 14:23 | disposition home or self-care (01) ==
LOC: ED 11:59
DX: I49.3 Ventricular premature depolarization (principal); I10 Essential (primary) hypertension; Z79.899 Other long term (current) drug therapy
CPT/HCPCS: 36415; 71045; 80053; 83735; 84484; 85025; 93005; 93041; 93225; 99284